=== PATIENT | male | born 1935 | race Caucasian/White ===

== ENCOUNTER → 2016-10-21 | Outpatient (CLI) | payer MEDICARE, BC | LOC: MW.CHNEURO 08:00 | PROVIDERS: ATTEND Psychiatry & Neurology Neuromuscular Medicine | DX: G20 Parkinson's disease (principal); R40.0 Somnolence; R49.8 Other voice and resonance disorders | CPT/HCPCS: 99205 ==

== ENCOUNTER 2017-03-26 20:20 | Inpatient (IN) | payer MEDICARE, BC ==
[2017-03-26] MEDS ORDERED: Piperacillin/Tazobactam 3.375 GM in Sodium Chloride 0.9% 50 ML IV ONE (20:58)
--- NOTE | 2017-03-26 21:00 | EDM.PDOC ---
ED HPI GENERAL MEDICAL PROBLEM - General Chief Complaint: Respiratory Problem Stated Complaint: UNK Time Seen by Provider: 03/26/17 21:00 Source of Information: Reports: EMS, Old Records, RN - History of Present Illness INITIAL COMMENTS - FREE TEXT/NARRATIVE: He came by EMS from [facility]. Staff there noted vomiting diarrhea, anorexia since this am. He is chronically very confused. HE is non ambulatory He has a code level III I am told. - Related Data Allergies Allergy/AdvReac Type Severity Reaction Status Date / Time aspirin Allergy Difficulty Verified 03/26/17 20:58 Swallowing Home Meds: Home Meds Ascorbic Acid [Vitamin C with Maria Del Rosario Hips] 1 tab PO DAILY 07/31/14 [History] Carbidopa/Levodopa [Sinemet CR 50-200] 1 tab PO TID 07/31/14 [History] Cholecalciferol (Vitamin D3) [Vitamin D3] 1 tab PO ASDIRECTED 07/31/14 [History] LORazepam 0.5 tab PO BID 07/31/14 [History] Lisinopril 0.5 tab PO BEDTIME 07/31/14 [History] Lisinopril 1 tab PO DAILY 07/31/14 [History] QUEtiapine Fumarate [Quetiapine Fumarate] 0.5 tab PO BEDTIME 07/31/14 [History] Sertraline HCl 0.5 tab PO BEDTIME 07/31/14 [History] Sertraline HCl 1 tab PO DAILY 07/31/14 [History] amLODIPine [Norvasc] 0.5 tab PO DAILY 07/31/14 [History] atorvaSTATin Calcium [Atorvastatin Calcium] 0.5 tab PO BEDTIME 07/31/14 [History ] Acetaminophen [Tylenol] 650 mg PO Q4H PRN #0 tablet 04/30/16 [Rx] Azithromycin [Zithromax] 250 mg PO Q24H #4 tablet 04/30/16 [Rx] Past Medical History Cardiovascular History: Reports: High Cholesterol, Hypertension, PR Other Gastrointestinal History: prostate enlargement Neurological History: Reports: Parkinson's, Other (See Below) (dementia) Psychiatric History: Reports: Anxiety, Depression - Past Surgical History Other GI Surgeries/Procedures: TURP Social & Family History - Tobacco Use Smoking Status *Q: Never Smoker Second Hand Smoke Exposure: No - Caffeine Use Caffeine Use: Reports: None - Recreational Drug Use Recreational Drug Use: No ED ROS GENERAL - Review of Systems Review Of Systems: See Below Constitutional: Denies: Fever Respiratory: Denies: Shortness of Breath Cardiovascular: Denies: Chest Pain (not obtainable from the patient) ED EXAM, GENERAL - Physical Exam Exam: See Below Free Text/Narrative:: marked hypertonia no meaningful speech heart RRR abdomen non tender incontinent of brown stool; strongly heme positive cap refill toes about 5 seconds. no open skin wounds noted lungs CTA General Appearance: Alert, Cachetic Course - Vital Signs Last Recorded V/S: Last Vital Signs Temp 99.2 F 03/26/17 21:30 Pulse 107 H 03/26/17 20:27 Resp 26 H 03/26/17 22:10 BP 101/56 L 03/26/17 22:17 Pulse Ox 98 03/26/17 22:10 - Orders/Labs/Meds Orders: Active Orders 24 hr Category Date Time Status EKG Documentation Completion [RC] STAT Care 03/26/17 20:36 Active Irene Catheter Insertion [Insert Urinary Catheter] [OM. Care 03/26/17 21:15 Ordered PC] Q24H Urinary Catheter Assessment [RC] ASDIRECTED Care 03/26/17 21:07 Active Chest 1V Frontal [CR] Stat Exams 03/26/17 20:36 Taken CULTURE BLOOD [BC] Stat Lab 03/26/17 21:15 Received CULTURE BLOOD [BC] Stat Lab 03/26/17 21:26 Results CULTURE URINE [RM] Stat Lab 03/26/17 21:29 Received Blood Culture x2 Reflex Set [OM.PC] Stat Oth 03/26/17 20:36 Ordered Medication Orders Levofloxacin/Dextrose 750 mg/ (Premix) 150 mls @ 100 mls/hr IV Q48H [facility] Piperacillin Sod/Tazobactam (Sod 2.25 gm/ Sodium Chloride) 50 mls @ 100 mls/hr IV Q6H [facility] Sodium Chloride (Normal Saline) 1,000 mls @ 125 mls/hr IV ASDIRECTED [facility] Vancomycin HCl 1.25 gm/ Sodium (Chloride) 500 mls @ 333.333 mls/hr IV ONETIME ONE Stop: 03/27/17 00:44 Vancomycin HCl 1 gm/ Sodium (Chloride) 250 mls @ 166 mls/hr IV Q24H [facility] Vancomycin HCl 1,000 mg/ (Dextrose/Water) 250 mls @ 167 mls/hr IV ONETIME ONE Stop: 03/27/17 00:46 Last Admin: 03/26/17 23:21 Dose: Not Given Sodium Chloride (Normal Saline) 250 mls @ 166 mls/hr IV ASDIRECTED [facility] Vancomycin HCl (Pharmacy To Dose - Vancomycin) 1 dose .XX ASDIRECTED [facility] Labs: Laboratory Tests 03/26/17 03/26/17 03/26/17 Range/Units 20:30 20:30 20:30 WBC 29.10 H (4.0-11.0) K/uL RBC 4.88 (4.50-5.90) M/uL Hgb 14.7 (13.0-17.0) g/dL Hct 45.3 (38.0-50.0) % MCV 92.8 (80.0-98.0) fL MCH 30.1 (27.0-32.0) pg MCHC 32.5 (31.0-37.0) g/dL RDW Std Deviation 49.0 (28.0-62.0) fl RDW Coeff of Gerald 14 (11.0-15.0) % Plt Count 331 (150-400) K/uL MPV 11.00 (7.40-12.00) fL Add Manual Diff YES Neutrophils % (Manual) 71 (48.0-80.0) % Band Neutrophils % 24 % Lymphocytes % (Manual) 2 L (16.0-40.0) % Monocytes % (Manual) 2 (0.0-15.0) % Eosinophils % (Manual) 1 (0.0-7.0) % Nucleated RBC % 0.0 /100WBC Absolute Seg Neuts 20.7 Band Neutrophils # 7.0 Lymphocytes # (Manual) 0.6 Monocytes # (Manual) 0.6 Eosinophils # (Manual) 0.3 Nucleated RBCs # 0 K/uL Lactate 8.0 H (0.20-2.00) mmol/L Sodium 146 (136-146) mmol/L Potassium 4.1 (3.5-5.1) mmol/L Chloride 106 (98-110) mmol/L Carbon Dioxide 18 L (21-31) mmol/L BUN 38 H (6.0-23.0) mg/dL Creatinine 2.1 H (0.6-1.5) mg/dL Est Cr Clr Drug Dosing 24.90 mL/min Estimated GFR (MDRD) 30.4 ml/min Glucose 118 H (60-110) mg/dL Calcium 9.4 (8.8-10.8) mg/dL Magnesium (1.5-2.3) mEq/L Total Bilirubin 1.3 (0.1-1.5) mg/dL AST 62 H (5-40) IU/L ALT 18 (8-54) IU/L Alkaline Phosphatase 124 (40-150) Troponin I (0.0-0.29) NG/ML B-Natriuretic Peptide (<100) PG/ML Total Protein 7.9 (6.0-8.0) g/dL Albumin 3.9 (3.4-4.8) g/dL Globulin 4.0 H (2.0-3.5) g/dL Albumin/Globulin Ratio 1.0 L (1.3-2.8) Urine Color Urine Appearance Urine pH (5.0-8.0) Ur Specific [place] (1.001-1.035) Urine Protein (NEGATIVE) mg/dL Urine Glucose (UA) (NEGATIVE) mg/dL Urine Ketones (NEGATIVE) mg/dL Urine Occult Blood (NEGATIVE) Urine Nitrite (NEGATIVE) Urine Bilirubin (NEGATIVE) Urine Urobilinogen (<2.0) EU/dL Ur Leukocyte Esterase (NEGATIVE) Urine RBC (0-2/HPF) Urine WBC (0-5/HPF) Ur Epithelial Cells (NONE-FEW) Urine Bacteria (NEGATIVE) 03/26/17 03/26/17 03/26/17 Range/Units 20:30 20:30 20:30 WBC (4.0-11.0) K/uL RBC (4.50-5.90) M/uL Hgb (13.0-17.0) g/dL Hct (38.0-50.0) % MCV (80.0-98.0) fL MCH (27.0-32.0) pg MCHC (31.0-37.0) g/dL RDW Std Deviation (28.0-62.0) fl RDW Coeff of Gerald (11.0-15.0) % Plt Count (150-400) K/uL MPV (7.40-12.00) fL Add Manual Diff Neutrophils % (Manual) (48.0-80.0) % Band Neutrophils % % Lymphocytes % (Manual) (16.0-40.0) % Monocytes % (Manual) (0.0-15.0) % Eosinophils % (Manual) (0.0-7.0) % Nucleated RBC % /100WBC Absolute Seg Neuts Band Neutrophils # Lymphocytes # (Manual) Monocytes # (Manual) Eosinophils # (Manual) Nucleated RBCs # K/uL Lactate (0.20-2.00) mmol/L Sodium (136-146) mmol/L Potassium (3.5-5.1) mmol/L Chloride (98-110) mmol/L Carbon Dioxide (21-31) mmol/L BUN (6.0-23.0) mg/dL Creatinine (0.6-1.5) mg/dL Est Cr Clr Drug Dosing mL/min Estimated GFR (MDRD) ml/min Glucose (60-110) mg/dL Calcium (8.8-10.8) mg/dL Magnesium 2.3 (1.5-2.3) mEq/L Total Bilirubin (0.1-1.5) mg/dL AST (5-40) IU/L ALT (8-54) IU/L Alkaline Phosphatase (40-150) Troponin I 0.38 H* (0.0-0.29) NG/ML B-Natriuretic Peptide 547 H (<100) PG/ML Total Protein (6.0-8.0) g/dL Albumin (3.4-4.8) g/dL Globulin (2.0-3.5) g/dL Albumin/Globulin Ratio (1.3-2.8) Urine Color Urine Appearance Urine pH (5.0-8.0) Ur Specific [place] (1.001-1.035) Urine Protein (NEGATIVE) mg/dL Urine Glucose (UA) (NEGATIVE) mg/dL Urine Ketones (NEGATIVE) mg/dL Urine Occult Blood (NEGATIVE) Urine Nitrite (NEGATIVE) Urine Bilirubin (NEGATIVE) Urine Urobilinogen (<2.0) EU/dL Ur Leukocyte Esterase (NEGATIVE) Urine RBC (0-2/HPF) Urine WBC (0-5/HPF) Ur Epithelial Cells (NONE-FEW) Urine Bacteria (NEGATIVE) 03/26/17 Range/Units 21:29 WBC (4.0-11.0) K/uL RBC (4.50-5.90) M/uL Hgb (13.0-17.0) g/dL Hct (38.0-50.0) % MCV (80.0-98.0) fL MCH (27.0-32.0) pg MCHC (31.0-37.0) g/dL RDW Std Deviation (28.0-62.0) fl RDW Coeff of Gerald (11.0-15.0) % Plt Count (150-400) K/uL MPV (7.40-12.00) fL Add Manual Diff Neutrophils % (Manual) (48.0-80.0) % Band Neutrophils % % Lymphocytes % (Manual) (16.0-40.0) % Monocytes % (Manual) (0.0-15.0) % Eosinophils % (Manual) (0.0-7.0) % Nucleated RBC % /100WBC Absolute Seg Neuts Band Neutrophils # Lymphocytes # (Manual) Monocytes # (Manual) Eosinophils # (Manual) Nucleated RBCs # K/uL Lactate (0.20-2.00) mmol/L Sodium (136-146) mmol/L Potassium (3.5-5.1) mmol/L Chloride (98-110) mmol/L Carbon Dioxide (21-31) mmol/L BUN (6.0-23.0) mg/dL Creatinine (0.6-1.5) mg/dL Est Cr Clr Drug Dosing mL/min Estimated GFR (MDRD) ml/min Glucose (60-110) mg/dL Calcium (8.8-10.8) mg/dL Magnesium (1.5-2.3) mEq/L Total Bilirubin (0.1-1.5) mg/dL AST (5-40) IU/L ALT (8-54) IU/L Alkaline Phosphatase (40-150) Troponin I (0.0-0.29) NG/ML B-Natriuretic Peptide (<100) PG/ML Total Protein (6.0-8.0) g/dL Albumin (3.4-4.8) g/dL Globulin (2.0-3.5) g/dL Albumin/Globulin Ratio (1.3-2.8) Urine Color YELLOW Urine Appearance HAZY Urine pH 6.0 (5.0-8.0) Ur Specific [place] 1.020 (1.001-1.035) Urine Protein NEGATIVE (NEGATIVE) mg/dL Urine Glucose (UA) NEGATIVE (NEGATIVE) mg/dL Urine Ketones NEGATIVE (NEGATIVE) mg/dL Urine Occult Blood LARGE H (NEGATIVE) Urine Nitrite NEGATIVE (NEGATIVE) Urine Bilirubin NEGATIVE (NEGATIVE) Urine Urobilinogen 0.2 (<2.0) EU/dL Ur Leukocyte Esterase NEGATIVE (NEGATIVE) Urine RBC 50-75 (0-2/HPF) Urine WBC 0-2 (0-5/HPF) Ur Epithelial Cells RARE (NONE-FEW) Urine Bacteria FEW (NEGATIVE) Meds: Medications Generic Name Dose Route Start Last Admin Trade Name Freq PRN Reason Stop Dose Admin Levofloxacin/Dextrose 750 mg/ 150 mls @ 100 mls/hr 03/26/17 23:00 Premix IV Q48H [facility] Piperacillin Sod/Tazobactam 50 mls @ 100 mls/hr 03/26/17 23:00 Sod 2.25 gm/ Sodium Chloride IV Q6H [facility] Sodium Chloride 1,000 mls @ 125 mls/hr 03/26/17 23:00 Normal Saline IV ASDIRECTED [facility] Vancomycin HCl 1.25 gm/ Sodium 500 mls @ 333.333 mls/hr 03/26/17 23:15 Chloride IV 03/27/17 00:44 ONETIME ONE Vancomycin HCl 1 gm/ Sodium 250 mls @ 166 mls/hr 03/28/17 00:00 Chloride IV Q24H [facility] Vancomycin HCl 1,000 mg/ 250 mls @ 167 mls/hr 03/26/17 23:17 03/26/17 23:21 Dextrose/Water IV 03/27/17 00:46 Not Given ONETIME ONE Sodium Chloride 250 mls @ 166 mls/hr 03/26/17 23:30 Normal Saline IV ASDIRECTED [facility] Vancomycin HCl 1 dose 03/26/17 23:00 Pharmacy To Dose - Vancomycin .XX ASDIRECTED [facility] Discontinued Medications Generic Name Dose Route Start Last Admin Trade Name Freq PRN Reason Stop Dose Admin Piperacillin Sod/Tazobactam 50 mls @ 100 mls/hr 03/26/17 20:58 03/26/17 21:12 Sod 3.375 gm/ Sodium Chloride IV 03/26/17 21:27 100 mls/hr ONETIME ONE Administration Sodium Chloride 1,000 mls @ 999 mls/hr 03/26/17 22:09 03/26/17 22:14 Normal Saline IV 03/26/17 23:09 Infused .Bolus ONE Infusion Sodium Chloride 1,000 mls @ 999 mls/hr 03/26/17 22:10 03/26/17 22:15 Normal Saline IV 03/26/17 23:10 999 mls/hr .Bolus ONE Administration Vancomycin HCl 1,000 mg/ 250 mls @ 167 mls/hr 03/26/17 22:44 Dextrose/Water IV 03/27/17 00:13 ONETIME ONE Vancomycin HCl 1,000 mg/ 250 mls @ 167 mls/hr 03/26/17 23:05 Dextrose/Water IV 03/27/17 00:34 ONETIME ONE Sodium Chloride Confirm 03/26/17 23:10 Normal Saline Administered 03/26/17 23:11 Dose 250 mls @ as directed .ROUTE .STK-MED ONE Vancomycin HCl Confirm 03/26/17 23:10 03/26/17 23:15 Vancocin Administered 03/26/17 23:11 1 gm Dose Administration 1 gm .ROUTE .STK-MED ONE - Re-Assessments/Exams Free Text/Narrative Re-Assessment/Exam: 03/26/17 22:48 I h ad a discussion with family members regarding DNR/DNI status. They concur with that status. I advised regarding diagnosis including elevated troponin and heme positive stool. They concur with non aggressive management. Free Text/Narrative Re-Assessment/Exam: 03/26/17 23:34 I spoke with his daughter who is his DPOA . We decided against the use of pressors in light of poor prognosis and comorbidities.Will attempt to control hypotension with IVF support. I discussed the poor prognosis and advised that he might not survive. Jimenez Mullen MD Departure - Departure Time of Disposition: 22:47 Disposition: Admitted As Inpatient 65 Condition: Critical Clinical Impression: Septic shock, Elevated troponin, Heme positive stool, Parkinsons disease, Dementia, DNR (do not resuscitate) discussion Pneumonia Qualifiers: Pneumonia type: due to unspecified organism Laterality: right Lung location: lower lobe of lung Qualified Code(s): J18.9 - Pneumonia, unspecified organism - Discharge Information - My Orders Last 24 Hours: My Active Orders 03/26/17 20:36 EKG Documentation Completion [RC] STAT Chest 1V Frontal [CR] Stat Blood Culture x2 Reflex Set [OM.PC] Stat 03/26/17 21:07 Urinary Catheter Assessment [RC] ASDIRECTED 03/26/17 21:15 Irene Catheter Insertion [Insert Urinary Catheter] [OM.PC] Q24H CULTURE BLOOD [BC] Stat 03/26/17 21:26 CULTURE BLOOD [BC] Stat 03/26/17 21:29 CULTURE URINE [RM] Stat - Assessment/Plan Last 24 Hours: My Active Orders 03/26/17 20:36 EKG Documentation Completion [RC] STAT Chest 1V Frontal [CR] Stat Blood Culture x2 Reflex Set [OM.PC] Stat 03/26/17 21:07 Urinary Catheter Assessment [RC] ASDIRECTED 03/26/17 21:15 Irene Catheter Insertion [Insert Urinary Catheter] [OM.PC] Q24H CULTURE BLOOD [BC] Stat 03/26/17 21:26 CULTURE BLOOD [BC] Stat 03/26/17 21:29 CULTURE URINE [RM] Stat
[2017-03-26] MEDS ORDERED: Sodium Chloride 0.9% 1,000 ML IV ONE ×2 (22:10→23:36)
[2017-03-26] MEDS: Sodium Chloride 0.9% 1,000 ML IV ONE ×2 (22:13→22:14)
[2017-03-26] MEDS ORDERED: Levofloxacin/Dextrose 5%-Water 750 MG in Premix Bag 1 BAG IV SCH (23:00)
[2017-03-26] MEDS ORDERED: Piperacillin/Tazobactam 2.25 GM in Sodium Chloride 0.9% 50 ML IV SCH (23:00)
[2017-03-26] MEDS ORDERED: Sodium Chloride 0.9% 1,000 ML IV SCH (23:00)
[2017-03-26] MEDS ORDERED: Vancomycin 1.25 GM in Sodium Chloride 0.9% 500 ML IV ONE (23:15)
[2017-03-26] MEDS: Vancomycin 1 GM AdvVial ONE (23:15)
[2017-03-26] MEDS ORDERED: Sodium Chloride 0.9% 250 ML IV SCH (23:30)
[2017-03-27] MEDS: Sodium Chloride 0.9% 250 ML ONE ×2 (00:18→00:35)
[2017-03-27] MEDS ORDERED: VANCOMYCIN IV ONE (00:30)
[2017-03-27] MEDS ORDERED: Sodium Chloride 0.9% 1,000 ML IV ONE ×3 (00:30→04:45)
[2017-03-27] MEDS ORDERED: SODIUM CHLORIDE 0.9% IV ONE (00:30)
[2017-03-27] MEDS: Vancomycin 1 GM AdvVial ONE (00:35)
[2017-03-27] MEDS: Piperacillin/Tazobactam 2.25 GM in Sodium Chloride 0.9% 50 ML IV SCH ×3 (01:49→13:50)
[2017-03-27] MEDS: Sodium Chloride 0.9% 1,000 ML IV SCH ×2 (03:08→10:59)
[2017-03-27] MEDS ORDERED: Sodium Chloride 0.9% 20 ML ONE (03:22)
[2017-03-27] MEDS ORDERED: Pantoprazole 40 MG in Sodium Chloride 0.9% 10 ML IVPUSH SCH (04:00)
[2017-03-27] MEDS: metroNIDAZOLE/Normal Saline 500 MG in Premix Bag 1 BAG IV SCH ×2 (05:49→11:46)
--- NOTE | 2017-03-27 09:47 | CR ---
EXAM DATE: 03/26/17 PATIENT'S AGE: 81 Patient: CASSANDRA SANCHEZ Facility: [place], [place] Site . Site : [id number] Study: XRay Chest [id number]/24/2017 9:08:48 PM Ordering Physician: Doctor York Final Report: Indication: Hypoxia Technique: Chest 1 view. Comparison: April 29, 2016 Findings: The cardiac silhouette is obscured by opacity in the left lower lobe. There appears to be elevation of left hemidiaphragm and narrowing of the interspace between the left ribs consistent with volume loss. Opacity in the left lower lobe may represent left lower lobe atelectasis. Chest CT may be useful for further evaluation. The right lung is clear. There is no pneumothorax. Calcified mediastinal lymph nodes noted bilaterally. Impression: Dictated by Mireya Mccoy MD @ Mar 26 2017 9:14PM (Electronic Signature) Report Signed by Proxy. [email or web address]
[2017-03-27] MEDS ORDERED: Scopolamine 1.5 MG Transdermal Patch TRDERM PRN (15:12)
[2017-03-27] MEDS ORDERED: Morphine 2 MG/ML Syringe IVPUSH PRN (15:12)
[2017-03-27] MEDS ORDERED: LORazepam 2 MG/ML MDV IVPUSH PRN ×2 (15:12→16:12)
--- NOTE | 2017-03-27 15:36 | PCM.HP ---
H&P History of Present Illness - General Date of Service: 03/27/17 Admit Problem/Dx: Admission Diagnosis/Problem Admission Diagnosis/Problem Sepsis - History of Present Illness Initial Comments - Free Text/Narative: is an 81-year-old male who is presenting from [facility]. Staff state that the patient has been having vomiting, diarrhea, anorexia, increasingly more confused. Patient does have a significant past medical history of chronic confusion secondary to Parkinson disease,as well as previous ID, hyperlipidemia , hypertension, prostate enlargement. Patient is nonverbal.upon arriving in the ER patient was noted to have marked hypertonia, fecal incontinence with a heme positive,WBC of 29.10,lactic acid level of 8.0,creatinine of 2.1 as well as elevated troponin of 0.38 and a BNP of 547.patient was noted to have tachycardia , blood pressure of 188/145 respiratory rate of 26, O2 saturation of 63 on 10 L oxygen flow rate.within an hour the patient was noted to have a hypotension blood pressures systolically ranging between 60-80 diastolically ranging between 30-50 with a mean arterial pressure ranging between 40-60 still noted to be tachypneic and hypoxic.his checks x-ray was notedP city in the left lower lobe. ER physician spoke with the patient's family in regards the patient's comorbidities and the likely poor prognosis of the patient. The daughter of the patient who has power of medical billing assistant over the patient stated that her dad did not want any resuscitative or efforts as a result the patient was made DNR/DNI and blood pressure was controlled through only IV fluids with no vasopressors. patient was admitted to the ICU. His lactate acid come down to 3.3, WBC at 14.25while his troponins had elevated to 0.95. In the ICU we spoke with the daughter of the patient in regards to the patient's likely poor prognosis due to septic shock secondary to his pneumonia with his multiple comorbidities. The daughter stated that she would speak with her sisters and decide whether or not to put the patient on palliative/comfort care. At 3 PM today the patient's family had a discussion with us once again regarding the patient's status and decided to make the patient hospice/palliative care. As such we discontinued his antibiotics his fluids placed a hospice consult in place as well as put morphine, Ativan, scopolamine on board for comfort care to decreased the patient 's distress/pain. Onset of Symptoms: Reports: Gradual - Related Data Allergies/Adverse Reactions: Allergies Allergy/AdvReac Type Severity Reaction Status Date / Time aspirin Allergy Difficulty Verified 03/26/17 20:58 Swallowing Home Medications: Home Meds Ascorbic Acid [Vitamin C with Maria Del Rosario Hips] 500 mg PO DAILY 07/31/14 [History] Carbidopa/Levodopa [Sinemet CR 50-200] 50 - 200 mg PO QID 07/31/14 [History] Cholecalciferol (Vitamin D3) [Vitamin D3] 2,000 unit PO DAILY 07/31/14 [History] LORazepam 0.5 mg PO BID 07/31/14 [History] Lisinopril 20 mg PO BEDTIME 07/31/14 [History] Lisinopril 40 mg PO QAM 07/31/14 [History] QUEtiapine Fumarate [Quetiapine Fumarate] 100 mg PO BID 07/31/14 [History] Sertraline HCl 100 mg PO BID 07/31/14 [History] atorvaSTATin Calcium [Atorvastatin Calcium] 5 mg PO BEDTIME 07/31/14 [History] Acetaminophen [Tylenol Extra Strength] 500 mg PO Q4H PRN 03/27/17 [History] Magnesium Hydroxide [Milk of Magnesia] 30 ml PO DAILY PRN 03/27/17 [History] Multivitamin [Daily Eulogio] 1 tab PO DAILY 03/27/17 [History] Nut.Sup,Spec.Frm,L-Fr,Iron/Fos [Twocal HN] 90 ml PO BID 03/27/17 [History] Witraúl Cherie [Tucks] 1 pad TOP ASDIRECTED PRN 03/27/17 [History] Past Medical History Cardiovascular History: Reports: High Cholesterol, Hypertension, ID Respiratory History: Reports: Other (See Below) Other Respiratory History: none from joaquin record Other Gastrointestinal History: prostate enlargement Musculoskeletal History: Reports: Other (See Below) Other Musculoskeletal History: hx of frequent fall Neurological History: Reports: Parkinson's, Other (See Below) Psychiatric History: Reports: Anxiety, Depression - Past Surgical History Other GI Surgeries/Procedures: TURP Social & Family History - Tobacco Use Smoking Status *Q: Unknown Ever Smoked Second Hand Smoke Exposure: No - Caffeine Use Caffeine Use: Reports: None - Recreational Drug Use Recreational Drug Use: No H&P Review of Systems - Review of Systems: Review Of Systems: ROS reveals no pertinent complaints other than HPI. Exam - Exam Exam: See Below - Vital Signs Vital Signs: Last Vital Signs Temp 36.6 C 03/27/17 12:00 Pulse 94 03/26/17 23:30 Resp 23 H 03/27/17 14:00 BP 87/52 L 03/27/17 14:00 Pulse Ox 95 03/27/17 14:00 Weight: 65.2 kg - Exam Quality Assessment: Supplemental Oxygen General: Sedated, Lethargic Lungs: Decreased Breath Sounds Cardiovascular: Tachycardia GI/Abdominal Exam: Abnormal Bowel Sounds Extremities: Limited Range of Motion - Patient Data Lab Results Last 24 hrs: Laboratory Results - last 24 hr 03/27/17 03/27/17 03/27/17 Range/Units 04:50 04:50 04:50 WBC 14.25 H (4.0-11.0) K/uL RBC 3.47 L (4.50-5.90) M/uL Hgb 10.5 L (13.0-17.0) g/dL Hct 31.5 L (38.0-50.0) % MCV 90.8 (80.0-98.0) fL MCH 30.3 (27.0-32.0) pg MCHC 33.3 (31.0-37.0) g/dL RDW Std Deviation 47.0 (28.0-62.0) fl RDW Coeff of Gerald 14 (11.0-15.0) % Plt Count 148 L (150-400) K/uL MPV 10.90 (7.40-12.00) fL Neut % (Auto) (48.0-80.0) % Lymph % (Auto) (16.0-40.0) % [place] % (Auto) (0.0-15.0) % Eos % (Auto) (0.0-7.0) % Baso % (Auto) (0.0-1.5) % Neut # (Auto) (1.4-5.7) K/uL Lymph # (Auto) (0.6-2.4) K/uL [place] # (Auto) (0.0-0.8) K/uL Eos # (Auto) (0.0-0.7) K/uL Baso # (Auto) (0.0-0.1) K/uL Add Manual Diff YES Neutrophils % (Manual) 68 (48.0-80.0) % Band Neutrophils % 23 % Lymphocytes % (Manual) 5 L (16.0-40.0) % Monocytes % (Manual) 4 (0.0-15.0) % Nucleated RBC % 0.0 /100WBC Absolute Seg Neuts 9.7 Band Neutrophils # 3.3 Lymphocytes # (Manual) 0.7 Monocytes # (Manual) 0.6 Nucleated RBCs # 0 K/uL Lactate (0.20-2.00) mmol/L Sodium 144 (136-146) mmol/L Potassium 3.9 (3.5-5.1) mmol/L Chloride 115 H (98-110) mmol/L Carbon Dioxide 16 L (21-31) mmol/L BUN 44 H (6.0-23.0) mg/dL Creatinine 2.1 H (0.6-1.5) mg/dL Est Cr Clr Drug Dosing 23.51 mL/min Estimated GFR (MDRD) 30.4 ml/min Glucose 84 (60-110) mg/dL Calcium 7.7 L (8.8-10.8) mg/dL Phosphorus 5.0 H (2.4-4.7) mg/dL Magnesium 1.7 (1.5-2.3) mEq/L Total Bilirubin 0.9 (0.1-1.5) mg/dL AST 95 H (5-40) IU/L ALT 17 (8-54) IU/L Alkaline Phosphatase 79 (40-150) Troponin I 0.95 H* (0.0-0.29) NG/ML Total Protein 5.4 L (6.0-8.0) g/dL Albumin 2.8 L (3.4-4.8) g/dL Globulin 2.6 (2.0-3.5) g/dL Albumin/Globulin Ratio 1.1 L (1.3-2.8) 03/27/17 03/27/17 Range/Units 04:50 12:01 WBC 13.24 H (4.0-11.0) K/uL RBC 3.56 L (4.50-5.90) M/uL Hgb 10.8 L (13.0-17.0) g/dL Hct 32.2 L (38.0-50.0) % MCV 90.4 (80.0-98.0) fL MCH 30.3 (27.0-32.0) pg MCHC 33.5 (31.0-37.0) g/dL RDW Std Deviation 47.5 (28.0-62.0) fl RDW Coeff of Gerald 14 (11.0-15.0) % Plt Count 144 L (150-400) K/uL MPV 10.30 (7.40-12.00) fL Neut % (Auto) 92.0 H (48.0-80.0) % Lymph % (Auto) 4.5 L (16.0-40.0) % [place] % (Auto) 3.4 (0.0-15.0) % Eos % (Auto) 0.0 (0.0-7.0) % Baso % (Auto) 0.1 (0.0-1.5) % Neut # (Auto) 12.2 H (1.4-5.7) K/uL Lymph # (Auto) 0.6 (0.6-2.4) K/uL [place] # (Auto) 0.5 (0.0-0.8) K/uL Eos # (Auto) 0.0 (0.0-0.7) K/uL Baso # (Auto) 0.0 (0.0-0.1) K/uL Add Manual Diff Neutrophils % (Manual) (48.0-80.0) % Band Neutrophils % % Lymphocytes % (Manual) (16.0-40.0) % Monocytes % (Manual) (0.0-15.0) % Nucleated RBC % 0.0 /100WBC Absolute Seg Neuts Band Neutrophils # Lymphocytes # (Manual) Monocytes # (Manual) Nucleated RBCs # 0 K/uL Lactate 3.3 H (0.20-2.00) mmol/L Sodium (136-146) mmol/L Potassium (3.5-5.1) mmol/L Chloride (98-110) mmol/L Carbon Dioxide (21-31) mmol/L BUN (6.0-23.0) mg/dL Creatinine (0.6-1.5) mg/dL Est Cr Clr Drug Dosing mL/min Estimated GFR (MDRD) ml/min Glucose (60-110) mg/dL Calcium (8.8-10.8) mg/dL Phosphorus (2.4-4.7) mg/dL Magnesium (1.5-2.3) mEq/L Total Bilirubin (0.1-1.5) mg/dL AST (5-40) IU/L ALT (8-54) IU/L Alkaline Phosphatase (40-150) Troponin I (0.0-0.29) NG/ML Total Protein (6.0-8.0) g/dL Albumin (3.4-4.8) g/dL Globulin (2.0-3.5) g/dL Albumin/Globulin Ratio (1.3-2.8) Result Diagrams: 03/27/17 12:01 03/27/17 04:50 Virgil Results Last 24 hrs: Microbiology 03/27/17 05:25 Clostridium difficile Toxin A&B (M) - Final Stool / Feces Negative for C.Diff Toxin/AG 03/27/17 05:25 Campylobacter Antigen Assay - Final Stool / Feces NEGATIVE CAMPYLOBACTER AG 03/27/17 05:25 Stool for WBCs - Final Stool / Feces POSITIVE FOR WBC'S *Q Meaningful Use (ADM) - VTE *Q VTE Criteria *Q: - Stroke *Q Stroke Criteria *Q: - AMI *Q AMI Criteria *Q: Problem List Initiated/Reviewed/Updated: Yes Orders Last 24hrs: Active Orders 24 hr Category Date Time Status Communication Order [RC] PER UNIT ROUTINE Care 03/26/17 22:55 Active Communication Order [RC] PER UNIT ROUTINE Care 03/27/17 00:25 Active Oxygen Therapy [RC] PRN Care 03/26/17 22:52 Active Oxygen Therapy [RC] PRN Care 03/26/17 22:57 Active Consult to Hospice [CONS] Routine Cons 03/27/17 15:11 Active Echo Comp wo Cont [US] Routine Exams 03/27/17 08:00 Taken CULTURE SPUTUM + SMEAR [RM] Stat Lab 03/26/17 22:52 Uncollected CULTURE STOOL + CAMPY+SHIGATOX [RM] Routine Lab 03/27/17 05:25 Results VANCOMYCIN TROUGH [CHEM] Timed Lab 03/29/17 23:30 Ordered LORazepam [Ativan] Med 03/27/17 15:12 Ordered 1 mg IVPUSH Q2H PRN Morphine Med 08/25/17 15:12 Ordered 2 mg IVPUSH Q1H PRN Scopolamine [Transderm-Scop] Med 03/27/17 15:12 Ordered 1.5 mg TRDERM Q72H PRN Medication Orders Lorazepam (Ativan) 1 mg IVPUSH Q2H PRN PRN Reason: Agitation Morphine Sulfate (Morphine) 2 mg IVPUSH Q1H PRN PRN Reason: Pain Scopolamine (Transderm-Scop) 1.5 mg TRDERM Q72H PRN PRN Reason: Dryness Assessment/Plan Comment:: 81-year-old male presenting with severe septic shock secondary to a pneumonia with a initial elevated lactate level of 8.0, initial leukocytosis of 28.1, elevated creatinine of 2.1, elevated BNP of 547, elevated troponin of 0.38. #1. Septic shock in the setting of a pneumonia with elevated lactic acid level leukocytosis, elevated creatinine, elevated BNP, elevated troponin. - Patient was initially given IV fluids, broad-spectrum antibiotics with Levaquin, vancomycin, Zosyn IV however after speaking with the family the decision has been made to make the patient hospice/palliative care as a result we have discontinued all antibiotics, all IV fluids and we have now put the patient on IV morphine 2 mg every hour when necessary for pain, Scopolamine, and Ativan for comfort measures #2. Palliative care - after having a long family meeting discussing the patient's prognosis the decision was made by the family with the patient on hospice/palliative care. - Discontinue all IV antibiotics, IV fluids, labs - Hospice consulted, family would like to bring the patient home - Hospice she'll try to arrange for patient bed at the daughter's home - IV morphine, scopolamine, IV Ativan on board for comfort measures
--- NOTE | 2017-03-28 10:41 | PCM.DCSUM1 ---
Discharge Summary - Discharge Data Discharge Date: 03/28/17 Discharge Disposition: DC/Tfer to Hospice - Home 50 Condition: Serious - Patient Summary/Data Consults: Consultations 03/27/17 15:11 Consult to Hospice [CONS] Routine Hospital Course: Admission diagnosis Septic shock Acute hypoxic respiratory failure Pneumonia Dementia Parkinsons Hospital course: 81[facility] reports from nursing staff vomiting, diarrhea, anorexia, increasingly more confused. Patient was obtunded .upon arriving in the ER patient was noted to have marked hypertonia, fecal incontinence with a heme positive,WBC of 29.10,lactic acid level of 8.0,creatinine of 2.1 as well as elevated troponin of 0.38 and a BNP of 547.patient was noted to have tachycardia , blood pressure of 188/145 respiratory rate of 26, O2 saturation of 63 on 10 L oxygen flow rate. Within an hour the patient was noted to have a hypotension blood pressures systolically ranging between 60-80 diastolically ranging between 30-50 with a mean arterial pressure ranging between 40-60 still noted to be tachypneic and hypoxic. His checks x-ray noted infiltrate in the left lower lobe. ER physician spoke with the patient's family in regards the patient' s comorbidities and the likely poor prognosis of the patient. The daughter of the patient who has power of immigration attorney over the patient stated that her dad did not want any resuscitative or efforts as a result the patient was made DNR/DNI and blood pressure was controlled through only IV fluids with no vasopressors. patient was admitted to the ICU. His lactate acid come down to 3.3, WBC at 14.25while his troponins had elevated to 0.95. After further discussion with family it was requested that the goals of care to be palliative care only. Hospice was consulted and the plan is to discharge patient home with family on hospice. - Discharge Plan Home Medications: Home Meds Carbidopa/Levodopa [Sinemet CR 50-200] 50 - 200 mg PO QID 07/31/14 [History] LORazepam 0.5 mg PO BID 07/31/14 [History] QUEtiapine Fumarate [Quetiapine Fumarate] 100 mg PO BID 07/31/14 [History] Sertraline HCl 100 mg PO BID 07/31/14 [History] Acetaminophen [Tylenol Extra Strength] 500 mg PO Q4H PRN 03/27/17 [History] Magnesium Hydroxide [Milk of Magnesia] 30 ml PO DAILY PRN 03/27/17 [History] Witraúl Verasel [Tucks] 1 pad TOP ASDIRECTED PRN 03/27/17 [History] Patient Handouts: Hospice, About Your Loved One's Last Days - Patient Data Vitals - Most Recent: Last Vital Signs Temp 36.8 C 03/27/17 20:00 Pulse 86 03/27/17 20:00 Resp 20 03/27/17 20:00 BP 80/49 L 03/27/17 20:00 Pulse Ox 96 03/27/17 20:00 Weight - Most Recent: 65.2 kg I&O - Last 24 hours: Intake & Output 03/27/17 03/28/17 03/28/17 22:59 06:59 14:59 Intake Total 410 40 Output Total 20 20 Balance 390 20 Lab Results - Last 24 hrs: Laboratory Results - last 24 hr 03/27/17 Range/Units 12:01 WBC 13.24 H (4.0-11.0) K/uL RBC 3.56 L (4.50-5.90) M/uL Hgb 10.8 L (13.0-17.0) g/dL Hct 32.2 L (38.0-50.0) % MCV 90.4 (80.0-98.0) fL MCH 30.3 (27.0-32.0) pg MCHC 33.5 (31.0-37.0) g/dL RDW Std Deviation 47.5 (28.0-62.0) fl RDW Coeff of Gerald 14 (11.0-15.0) % Plt Count 144 L (150-400) K/uL MPV 10.30 (7.40-12.00) fL Neut % (Auto) 92.0 H (48.0-80.0) % Lymph % (Auto) 4.5 L (16.0-40.0) % [place] % (Auto) 3.4 (0.0-15.0) % Eos % (Auto) 0.0 (0.0-7.0) % Baso % (Auto) 0.1 (0.0-1.5) % Neut # (Auto) 12.2 H (1.4-5.7) K/uL Lymph # (Auto) 0.6 (0.6-2.4) K/uL [place] # (Auto) 0.5 (0.0-0.8) K/uL Eos # (Auto) 0.0 (0.0-0.7) K/uL Baso # (Auto) 0.0 (0.0-0.1) K/uL Nucleated RBC % 0.0 /100WBC Nucleated RBCs # 0 K/uL MARSHAL Results - Last 24 hrs: Microbiology 03/27/17 05:25 Stool Culture - Final Stool / Feces NO SALMONELLA, SHIGELLA,OR E.COLI O157 ISOLATED Campylobacter Antigen Assay - Final NEGATIVE CAMPYLOBACTER AG - Final NEGATIVE FOR SHIGA TOXIN 1 - Final NEGATIVE FOR SHIGA TOXIN 2 03/27/17 05:25 Clostridium difficile Toxin A&B (M) - Final Stool / Feces Negative for C.Diff Toxin/AG 03/27/17 05:25 Stool for WBCs - Final Stool / Feces POSITIVE FOR WBC'S Med Orders - Current: Current Medications Lorazepam (Ativan) 0 mg IVPUSH Q4H PRN PRN Reason: Agitation Morphine Sulfate (Morphine) 2 mg IVPUSH Q1H PRN PRN Reason: Pain Scopolamine (Transderm-Scop) 1.5 mg TRDERM Q72H PRN PRN Reason: Dryness Discontinued Medications Piperacillin Sod/Tazobactam (Sod 3.375 gm/ Sodium Chloride) 50 mls @ 100 mls/ hr IV ONETIME ONE Stop: 03/26/17 21:27 Last Admin: 03/26/17 21:12 Dose: 100 mls/hr Sodium Chloride (Normal Saline) 1,000 mls @ 999 mls/hr IV .Bolus ONE Stop: 03/26/17 23:09 Last Infusion: 03/26/17 22:14 Dose: Infused Sodium Chloride (Normal Saline) 1,000 mls @ 999 mls/hr IV .Bolus ONE Stop: 03/26/17 23:10 Last Admin: 03/26/17 22:15 Dose: 999 mls/hr Vancomycin HCl 1,000 mg/ (Dextrose/Water) 250 mls @ 167 mls/hr IV ONETIME ONE Stop: 03/27/17 00:13 Last Admin: 03/27/17 00:16 Dose: Not Given Levofloxacin/Dextrose 750 mg/ (Premix) 150 mls @ 100 mls/hr IV Q48H [facility] Last Admin: 03/27/17 00:10 Dose: 100 mls/hr Piperacillin Sod/Tazobactam (Sod 2.25 gm/ Sodium Chloride) 50 mls @ 100 mls/hr IV Q6H [facility] Last Admin: 03/27/17 01:10 Dose: Not Given Sodium Chloride (Normal Saline) 1,000 mls @ 125 mls/hr IV ASDIRECTED [facility] Last Admin: 03/27/17 00:10 Dose: 125 mls/hr Vancomycin HCl 1,000 mg/ (Dextrose/Water) 250 mls @ 167 mls/hr IV ONETIME ONE Stop: 03/27/17 00:34 Last Admin: 03/27/17 00:24 Dose: Not Given Sodium Chloride (Normal Saline) Confirm Administered Dose 250 mls @ as directed .ROUTE .STK-MED ONE Stop: 03/26/17 23:11 Last Admin: 03/27/17 00:35 Dose: Not Given Vancomycin HCl 1 gm/ Sodium (Chloride) 250 mls @ 166 mls/hr IV Q24H [facility] Vancomycin HCl 1,000 mg/ (Dextrose/Water) 250 mls @ 167 mls/hr IV ONETIME ONE Stop: 03/27/17 00:46 Last Admin: 03/26/17 23:21 Dose: Not Given Sodium Chloride (Normal Saline) 250 mls @ 166 mls/hr IV ASDIRECTED [facility] Sodium Chloride (Normal Saline) 1,000 mls @ 999 mls/hr IV .Bolus ONE Stop: 03/27/17 00:36 Last Admin: 03/26/17 23:38 Dose: 999 mls/hr Piperacillin Sod/Tazobactam (Sod 2.25 gm/ Sodium Chloride) 50 mls @ 100 mls/hr IV Q6H [facility] Last Admin: 03/27/17 13:50 Dose: 100 mls/hr Vancomycin HCl 1 gm/ Sodium (Chloride) 250 mls @ 166 mls/hr IV ONETIME ONE Stop: 03/27/17 00:30 Last Admin: 03/26/17 23:15 Dose: 166 mls/hr Vancomycin HCl 0.25 gm/ Sodium (Chloride) 100 mls @ 75 mls/hr IV ONETIME ONE Stop: 03/27/17 01:49 Last Admin: 03/27/17 02:01 Dose: 75 mls/hr Sodium Chloride (Normal Saline) 1,000 mls @ 999 mls/hr IV ONETIME ONE Stop: 03/27/17 01:30 Last Admin: 03/27/17 01:05 Dose: 999 mls/hr Sodium Chloride (Normal Saline) 1,000 mls @ 999 mls/hr IV ONETIME ONE Stop: 03/27/17 03:00 Last Admin: 03/27/17 02:00 Dose: 999 mls/hr Sodium Chloride (Normal Saline) 1,000 mls @ 150 mls/hr IV ASDIRECTED [facility] Last Admin: 03/27/17 10:59 Dose: 150 mls/hr Pantoprazole Sodium 40 mg/ (Sodium Chloride) 10 mls @ 300 mls/hr IVPUSH Q12H [facility] Last Admin: 03/27/17 03:25 Dose: 300 mls/hr Sodium Chloride (Normal Saline) Confirm Administered Dose 20 mls @ as directed .ROUTE .STK-MED ONE Stop: 03/27/17 03:23 Last Admin: 03/27/17 03:59 Dose: Not Given Sodium Chloride (Normal Saline) 1,000 mls @ 999 mls/hr IV ONETIME ONE Stop: 03/27/17 05:45 Last Admin: 03/27/17 04:54 Dose: 999 mls/hr Metronidazole 500 mg/ Premix 100 mls @ 100 mls/hr IV Q6H [facility] Last Admin: 03/27/17 11:46 Dose: 100 mls/hr Lorazepam (Ativan) 1 mg IVPUSH Q2H PRN PRN Reason: Agitation Vancomycin HCl (Pharmacy To Dose - Vancomycin) 1 dose .XX ASDIRECTED [facility] Vancomycin HCl (Vancocin) Confirm Administered Dose 1 gm .ROUTE .STK-MED ONE Stop: 03/26/17 23:11 Last Admin: 03/27/17 00:35 Dose: Not Given *Q Meaningful Use (DIS) - VTE *Q VTE Criteria *Q: - Stroke *Q Stroke Criteria *Q: - AMI *Q AMI Criteria *Q:
[2017-03-28 13:12] VITALS: BP 95/61
--- NOTE | 2017-03-31 13:01 | ECHO ---
EXAM DATE: 03/26/17 PATIENT'S AGE: 81 The echocardiogram report can be seen in this patient's EMR (Electronic Medical Record) in the Reports section. The report has also been scanned into PACS. [email or web address]
== END 2017-03-28 11:42 | disposition hospice, home (50) | DRG 871 ==
LOC: MW.ED 20:20 → MW.ICU 22:49
PROVIDERS: ADMIT Internal Medicine; ATTEND Internal Medicine
DX: A41.9 Sepsis, unspecified organism (principal); R65.21 Severe sepsis with septic shock; J18.9 Pneumonia, unspecified organism; R79.89 Other specified abnormal findings of blood chemistry; R06.02 Shortness of breath; E78.00 Pure hypercholesterolemia, unspecified; K92.1 Melena; G20 Parkinson's disease; F02.80 Dementia in other diseases classified elsewhere, unspecified severity, without behavioral disturbance, psychotic disturbance, mood disturbance, and anxiety; R00.0 Tachycardia, unspecified; Z91.09 Other allergy status, other than to drugs and biological substances; I10 Essential (primary) hypertension; E78.5 Hyperlipidemia, unspecified; F41.8 Other specified anxiety disorders; I25.2 Old myocardial infarction; Z66 Do not resuscitate; Z51.5 Encounter for palliative care; Z79.899 Other long term (current) drug therapy
CPT/HCPCS: 36415; 71010; 80053; 81001; 82962; 83605; 83735; 83880; 84484; 85025; 87040 ×2; 87086; 87899; 93005; 96361; 96365; 99285; J2543; J7040 ×3; J7050; 83630; 84100; 87046; 87324; 93306; 96367; 99284; C9113; J1956; J2060; J2270; J3370; J7030